=== PATIENT | male | born 1960 | race Caucasian/White ===

== ENCOUNTER 2024-11-29 23:00 | Inpatient (IN) | payer OTHER, SELFPAY ==
[2024-11-29 18:33] VITALS: BP 113/61
--- NOTE | 2024-11-29 19:31 | ED.GENMED ---
History of Present Illness
<Marilyn Randolph DO, Resident - Last Filed: 11/29/24 23:52>
General
Chief Complaint: Skin Problem
Source: patient
Time Seen by Provider: 11/29/24 19:11
History of Present Illness
History of Present Illness:
Patient is a 64-year-old male past medical history of bilateral carpal tunnel, hypertension, diabetes, prostate cancer presenting with left wrist and arm pain. Patient has chronic wrist and thumb pain due to carpal tunnel. He has been suggested to
have carpal tunnel surgery. Patient wears bilateral wrist braces at night, the left wrist brace is more elaborate than the right. Patient awoke at 3 AM this morning with wrist pain and tenderness to the wrist and thumb. He noticed some slight
warmth and redness. As the day went on, patient noticed red streaking up his forearm. Patient notes that the streaking is now beyond the length of his wrist brace. Present denies any injury to his left arm or wrist. Patient denies this ever
happening before. Patient is left-handed. Patient is compliant with his metformin and his last A1c was 6.9. Patient has recently started a vitamin D supplement.
Review of Systems
<Marilyn Randolph DO, Resident - Last Filed: 11/29/24 23:52>
Review of Systems
Allergies reviewed?: Yes
All Other Systems: ROS reviewed and negative except as documented in HPI and ROS
Constitutional: Reports no symptoms
EENT: Reports no symptoms
Respiratory: Reports no symptoms
Cardiac: Reports no symptoms
ABD/GI: Reports no symptoms
: Reports no symptoms
Musculoskeletal: Reports joint pain (left wrist) and joint swelling (left wrist and thenar eminence )
Skin: Reports other (redness over left wrist and thenar eminence, red streaking up left forearm)
Neurological: Reports no symptoms
Endocrine: Reports no symptoms
Hematologic/Lymphatic: Reports no symptoms
Psychiatric: Reports no symptoms
Phy Exam
<Marilyn Randolph DO, Resident - Last Filed: 11/29/24 23:52>
General Physical Exam
General Presentation: well appearing and no apparent distress
General age: appears stated age
General Skin: warm and dry
General Habitus: normal
General Mental: alert
Cardiovascular Exam
Cardiovascular Exam: regular rate/rhythm
Heart Sounds: normal
Pulmonary Exam
Pulmonary Exam: lungs clear, no respiratory distress, no crackles and no wheezing
Gastrointestinal Exam
Gastrointestinal Exam: normal bowel sounds, non tender, soft and non distended
Neurological Exam
Neurological Exam: alert and oriented x3
Musculoskeletal Exam
Musculoskeletal Exam: joint swelling (tenderness ove rleft wrist and thenar eminence,)
Skin Exam
Skin Exam: normal color, warm/dry and other (warmth, redness and tenderness over left wrist and thenar eminence, red streaking up left forearm)
Sepsis
<Marilyn Randolph DO, Resident - Last Filed: 11/29/24 23:52>
Sepsis Screening
Sepsis Assessment: Sepsis Ruled Out
Sepsis Screen
Sepsis Screen: Sepsis Ruled Out
Date: 11/29/24
Time: 23:51
Course
<Marilyn Randolph DO, Resident - Last Filed: 11/29/24 23:52>
Orders/Labs/Results
Orders:
Orders
11/29/24 19:51
CR Wrist - Left Min 3 Views Urgent
Comment:
Reason For Exam: left wrist and thumb pain
11/29/24 20:04
CRP [C-Reactive Protein] Urgent
Complete Blood Count/With Diff Urgent
Comprehensive Metabolic Panel Urgent
Sed Rate [Erythrocyte Sed Rate] Urgent
11/29/24 20:05
Ketorolac [Toradol] 15 mg IM NOW STA
11/29/24 20:07
Ketorolac [Toradol] 15 mg IV NOW STA
11/29/24 20:22
CeFAZolin 2 GRAM [Ancef] 2 grams in 10 ml IV NOW
11/29/24 21:30
Morphine Sulfate 4 mg IV NOW STA
Ondansetron Injectable [Zofran] 4 mg IV NOW STA
11/29/24 22:32
Urinalysis Reflex To Culture Routine
11/29/24 22:33
Admit/Transfer Patient As Directed
Co-Sign Provider:
Level of Care: Inpatient admission
Assign to:: Medical/Surgical
Physician / Group: daiana vences
Diagnosis: cellultiis L thumb wrist conc tenosynovitis vs septic joint
Reason for Hospitalization: cellultiis L thumb wrist conc tenosynovitis vs septic joint
Expected length of stay greater than two midnights?: Yes
ELOS- Estimated Length of Stay in days: 4
I certify the patient meets the requirements for IP care: Yes
Code Status As Directed
Resuscitation Status: Full Code
Oxycodone [Roxicodone] 5 mg PO Q4HPRN PRN
11/29/24 22:36
PRN Pain Medication Management As Directed
May give lesser potent ordered pain med per pt: Yes
preference::
Protocol:: Medication orders for pain may be administered in a
manner that supports deferring to patient preference
when the pt is:
- Requesting an ordered lesser potent pain medication.
Least to most potent pain medications are defined
as: acetaminophen < NSAID < tramadol < opioids
(morphine, oxycodone, hydromorphone).
- Requesting a lesser dose of the same medication IF
ORDERED.
- Requesting a less intrusive route of administration
if both routes are prescribed by the provider (PO <
IV).
11/29/24 22:39
ORTHOPEDIC CONSULT Routine
Consulting Provider: Austin Melissa
Was physician already notified: Yes
Reason for consult: thumb wrist cellulitis vs tensoynovitis/septic joint
11/30/24 08:00
Acetaminophen [Tylenol] 1,000 mg PO TID
Abnormal Lab Results
11/29/24
20:04
WBC 11.7 H 10^3/uL
(4.8-10.8)
RBC 3.88 L 10^6/uL
(4.70-6.10)
Hgb 11.5 L g/dL
(13.0-18.0)
Hct 34.8 L %
(39.0-52.0)
Abs Immat Gran (auto) 0.1 H 10^3/uL
(0-0.05)
Absolute Neuts (auto) 8.0 H 10^3/uL
(1.4-6.5)
Absolute Monos (auto) 1.3 H 10^3/uL
(0.1-0.6)
Lymphocytes % 18.4 L %
(20.5-51.1)
Monocytes % 10.7 H %
(1.7-9.3)
BUN 34 H mg/dl
(9-20)
Creatinine 1.8 H mg/dL
(0.7-1.3)
Glucose 129 H mg/dl
(70-99)
Alkaline Phosphatase 33 L U/L
(38-126)
C-Reactive Protein 24.50 H mg/L
(0.0-10.00)
11/29/24 20:04
11/29/24 20:04
Vital Signs
Initial and Last Documented VS:
Initial Vital Signs
Temp Pulse Resp BP Pulse Ox
99.2 F 91 16 113/61 96
11/29/24 18:33 11/29/24 18:33 11/29/24 18:33 11/29/24 18:33 11/29/24 18:33
Last Documented Vital Signs
Temp Pulse Resp BP Pulse Ox
98.3 F 65 16 105/63 96
11/29/24 23:12 11/29/24 23:12 11/29/24 23:12 11/29/24 23:12 11/29/24 23:12
<Den Santos, DO - Last Filed: 11/29/24 20:03>
Orders/Labs/Results
Orders:
Orders
11/29/24 19:51
CR Wrist - Left Min 3 Views Urgent
Comment:
Reason For Exam: left wrist and thumb pain
11/29/24 20:04
CRP [C-Reactive Protein] Urgent
Complete Blood Count/With Diff Urgent
Comprehensive Metabolic Panel Urgent
Sed Rate [Erythrocyte Sed Rate] Urgent
11/29/24 20:05
Ketorolac [Toradol] 15 mg IM NOW STA
11/29/24 20:07
Ketorolac [Toradol] 15 mg IV NOW STA
11/29/24 20:22
CeFAZolin 2 GRAM [Ancef] 2 grams in 10 ml IV NOW
11/29/24 21:30
Morphine Sulfate 4 mg IV NOW STA
Ondansetron Injectable [Zofran] 4 mg IV NOW STA
11/29/24 22:32
Urinalysis Reflex To Culture Routine
11/29/24 22:33
Admit/Transfer Patient As Directed
Co-Sign Provider:
Level of Care: Inpatient admission
Assign to:: Medical/Surgical
Physician / Group: daiana vences
Diagnosis: cellultiis L thumb wrist conc tenosynovitis vs septic joint
Reason for Hospitalization: cellultiis L thumb wrist conc tenosynovitis vs septic joint
Expected length of stay greater than two midnights?: Yes
ELOS- Estimated Length of Stay in days: 4
I certify the patient meets the requirements for IP care: Yes
Code Status As Directed
Resuscitation Status: Full Code
Oxycodone [Roxicodone] 5 mg PO Q4HPRN PRN
11/29/24 22:36
PRN Pain Medication Management As Directed
May give lesser potent ordered pain med per pt: Yes
preference::
Protocol:: Medication orders for pain may be administered in a
manner that supports deferring to patient preference
when the pt is:
- Requesting an ordered lesser potent pain medication.
Least to most potent pain medications are defined
as: acetaminophen < NSAID < tramadol < opioids
(morphine, oxycodone, hydromorphone).
- Requesting a lesser dose of the same medication IF
ORDERED.
- Requesting a less intrusive route of administration
if both routes are prescribed by the provider (PO <
IV).
11/29/24 22:39
ORTHOPEDIC CONSULT Routine
Consulting Provider: Austin Melissa
Was physician already notified: Yes
Reason for consult: thumb wrist cellulitis vs tensoynovitis/septic joint
11/30/24 08:00
Acetaminophen [Tylenol] 1,000 mg PO TID
Abnormal Lab Results
11/29/24
20:04
WBC 11.7 H 10^3/uL
(4.8-10.8)
RBC 3.88 L 10^6/uL
(4.70-6.10)
Hgb 11.5 L g/dL
(13.0-18.0)
Hct 34.8 L %
(39.0-52.0)
Abs Immat Gran (auto) 0.1 H 10^3/uL
(0-0.05)
Absolute Neuts (auto) 8.0 H 10^3/uL
(1.4-6.5)
Absolute Monos (auto) 1.3 H 10^3/uL
(0.1-0.6)
Lymphocytes % 18.4 L %
(20.5-51.1)
Monocytes % 10.7 H %
(1.7-9.3)
BUN 34 H mg/dl
(9-20)
Creatinine 1.8 H mg/dL
(0.7-1.3)
Glucose 129 H mg/dl
(70-99)
Alkaline Phosphatase 33 L U/L
(38-126)
C-Reactive Protein 24.50 H mg/L
(0.0-10.00)
11/29/24 20:04
11/29/24 20:04
Vital Signs
Initial and Last Documented VS:
Initial Vital Signs
Temp Pulse Resp BP Pulse Ox
99.2 F 91 16 113/61 96
11/29/24 18:33 11/29/24 18:33 11/29/24 18:33 11/29/24 18:33 11/29/24 18:33
Last Documented Vital Signs
Temp Pulse Resp BP Pulse Ox
98.3 F 65 16 105/63 96
11/29/24 23:12 11/29/24 23:12 11/29/24 23:12 11/29/24 23:12 11/29/24 23:12
<Marilyn Randolph DO, Resident - Last Filed: 11/29/24 23:52>
MDM/Problems Addressed
Differential Diagnosis Includes:
Cellulitis
MDM/Problems Addressed:
Will order CBC, CMP, sed rate, CRP, and x-ray of left wrist.
WBC is 11.7. CRP is 24.5 mg/L. Wrist x-ray shows degenerative changes. Gave 15 mg Toradol with no relief of symptoms. Just gave 4 mg morphine. Gave 2 grams cefazolin IV.
Will admit to hospitalist for management of the cellulitis. Reached out to Ortho with photos asking for consult tomorrow morning.
<Marilyn Randolph DO, Resident - Last Filed: 11/29/24 23:52>
*Pulse Oximetry
SaO2: 96
Oxygen Mode of Delivery: Room air
Patient hypoxic: no
*Critical Care Note
Total Time (30-74mins, 75-104mins- exclusive of procedures): Not Applicable
ED Attending Note
<Marilyn Randolph DO, Resident - Last Filed: 11/29/24 23:52>
-
Portions of this chart may have been created with voice recognition software.� Occasional wrong word or��sound alike� substitutions may have occurred due to the inherent limitations of voice recognition software.
<Den Santos DO - Last Filed: 11/29/24 20:03>
ED Attending Note
Patient seen and examined by attending physician: Yes
I performed a history and physical exam of patient and discussed management with resident, I reviewed resident's note and agree with documented findings and plan of care.: Yes
ED Attending Note:
I have reviewed and agree with his and treatment plan by Marilyn Randolph D.O. My exam revealed 63-year-old male with erythema of left wrist and forearm swelling of thenar palm. Will obtain labs, xray and d/w ortho.
Discharge Plan
Departure
Patient Disposition: Admit
Date of Disposition: 11/29/24
Time of Disposition: 22:28
Presentation/result/management discussed w/ accepting MD/DO: Hospitalist
Discharge Problem:
Cellulitis
Interventions
Interventions:
*Risk Screen - Suicide Last Done: 11/29/24 18:33
*Neglect/Abuse Screening Last Done: 11/29/24 18:33
ED-Skin Assessment Last Done: 11/29/24 20:12
[2024-11-29] MEDS: TORADOL 15 MG IV (20:09)
[2024-11-29 20:13] LABS: Hematocrit 34.8 % (39.0-52.0); Hemoglobin 11.5 g/dL (13.0-18.0); Mean Corp Hgb Conc. 33.0 g/dL (33.0-37.0); Mean Corpuscular Volume 89.7 fL (80.0-94.0); Nucleated Red Blood Cells % 0 % (-); Platelet Count 252 10^3/uL (130-400); Red Cell Dist. Width 13.1 % (11.5-14.5)
[2024-11-29 20:35] LABS: ALT (SGPT) 28 U/L (0-50); AST (SGOT) 17 U/L (17-59); Albumin 4.4 g/dl (3.5-5.0); Alkaline Phosphatase 33 U/L (38-126); Blood Urea Nitrogen 34 mg/dl (9-20); Calcium 9.8 mg/dl (8.4-10.2); Carbon Dioxide 26 mmol/L (22-30); Chloride 106 mmol/L (98-107); Glucose 129 mg/dl (70-99); Potassium 4.9 mmol/L (3.5-5.1); Sodium 139 mmol/L (135-145); Total Protein 6.8 g/dl (6.3-8.2); eGFR 41.77
[2024-11-29 20:38] LABS: C-Reactive Protein 24.50 mg/L (0.0-10.00)
[2024-11-29] MEDS: ANCEF 10 IV (20:49)
[2024-11-29 20:59] VITALS: BP 113/75
--- NOTE | 2024-11-29 22:11 | W.PN.UPDATE ---
Update Note
Progress Note Update
Patient seen in conjunction with DEVONTE. I agree with the findings history and physical. I concur with assessment plan unless stated otherwise.
Briefly, this is a 64-year-old with past medical history significant for [id number] diabetes, hypertension, hyperlipidemia, history of prostate cancer status post resection, history of nephrolithiasis with multiple oral neurological
procedures/'kidney surgeries', CKD, presented to the emergency department with acute onset of left hand redness and swelling. Denies any history of trauma. Denies any specific repetitive motion activity. Denies any insect bites. There is no open
wound. He has not had any fevers or chills. He did notice that he has decreased range of motion with opposition of the thumb. There is pain along the external surface of the thenar eminence. It radiates to the wrist. The wrist itself has normal
range of motion.
On the Emergency Department the patient was afebrile, Tmax 99.2, blood pressure 113/75 with a pulse rate of 78 satting 98% on room air. He had a white count of 11.7 otherwise unremarkable CBC. Electrolytes were normal. BUN/creatinine were 30 and
1.8, no recent priors.
X-ray shows degenerative changes and no foreign body or fluid collection.
ESR is 10, CRP 24.
Assessment and plan
Suspect acute tendinitis/cellulitis with increasing lymphangitic spread in the left upper extremity. There is no joint effusion. Pain with opposition of the thumb and extension of that tendon suggestive of tendinitis/flexor tenosynovitis. No
animal bite, no known trauma or external injury. Left handed but no recent repititive motion. No recent abx use.
- admit to med/surg
- likely needs splinting of thumb
- xray w/o obvious fracture, ortho consult
- ancef for cellulitis
- pain control, acetaminophen/opioids unfortunately w/o nsaids
CHRISTIANO - Mild CHRISTIANO, Cr 1.22 in may now 1.8. On lisinopril
- hold lisinopril
- Hydration overnight
- follow i/os
- check u/a
- u/s in am if creatinine remains elevated.
DM II
- metformin hold
- sliding scale insulin
DVT PPX - heparin sq
Code status - Full Code
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
[2024-11-29 23:12] VITALS: BP 105/63
[2024-11-29 23:13] VITALS: BMI 28.3
[2024-11-29] MEDS: MORPHINE SULFATE 4 MG IV (23:19)
[2024-11-29] MEDS: ZOFRAN 4 MG IV (23:21)
[2024-11-29] MEDS: FLUSH (NSS) 1 FLUSH IV (23:23)
[2024-11-30 01:54] VITALS: BMI 27.4
[2024-11-30 01:55] VITALS: BP 116/71
--- NOTE | 2024-11-30 02:15 | PTCARENOTE ---
Recieved pt from ED. Pt ambulated from stretcher to bed. Pt AAOx3, [id number] pt to unit, call grubbs within reach. Uable to do skin assessment on L arm due to splint/brace. Pt. care ongoing.
--- NOTE | 2024-11-30 02:15 | PTCARENOTE ---
Recieved pt from ED. Pt ambulated from stretcher to bed. Pt AAOx3, oriented pt to unit, call grubbs within reach. limited skin assessment on L arm due to splint/brace. Pt. care ongoing.
[2024-11-30 02:19] LABS: Glucose - Point of Care 119 mg/dl (70-99)
[2024-11-30] MEDS: NSS 1000 IV ×2 (02:30→21:05)
[2024-11-30] MEDS: ROXICODONE 5 MG PO ×2 (02:34→07:07)
[2024-11-30] MEDS: ANCEF 5 IV ×3 (04:10→21:05)
[2024-11-30 07:10] VITALS: BP 108/69
[2024-11-30 07:31] LABS: Hematocrit 32.9 % (39.0-52.0); Hemoglobin 10.7 g/dL (13.0-18.0); Mean Corp Hgb Conc. 32.5 g/dL (33.0-37.0); Mean Corpuscular Volume 92.2 fL (80.0-94.0); Nucleated Red Blood Cells % 0 % (-); Platelet Count 209 10^3/uL (130-400); Red Cell Dist. Width 13.1 % (11.5-14.5)
[2024-11-30 07:58] LABS: ALT (SGPT) 21 U/L (0-50); AST (SGOT) 16 U/L (17-59); Albumin 3.8 g/dl (3.5-5.0); Alkaline Phosphatase 32 U/L (38-126); Blood Urea Nitrogen 36 mg/dl (9-20); Calcium 8.9 mg/dl (8.4-10.2); Carbon Dioxide 26 mmol/L (22-30); Chloride 106 mmol/L (98-107); Estimated Creatinine Clearance 47 ml/min; Glucose 117 mg/dl (70-99); Potassium 4.4 mmol/L (3.5-5.1); Sodium 138 mmol/L (135-145); Total Protein 5.8 g/dl (6.3-8.2); eGFR 48.11
--- NOTE | 2024-11-30 08:37 | W.PN.UPDATE ---
Addendum entered and electronically signed by Austin Melissa MD 11/30/24 19:35:
Patient has improved throughout the day on intravenous antibiotics. This evening there is minimal erythema. He is able to move his left thumb and fingers with mild to moderate discomfort. We will continue observation with IV antibiotics. If
symptoms not significantly improved or worsen tomorrow, strong consideration will be given to MRI.
Original Note:
Update Note
Progress Note Update
Full orthopedic consult to be dictated:
Patient has developed left upper extremity cellulitis requiring admission to the hospital. 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 He was placed into a thumb spica splint with ice and elevation. Overnight
he received Ancef and evaluation this morning showed definite improvement. He still has edema in the left thumb and hand but the erythema that was tracking up his arm has resolved. He may transition from thumb spica splint this morning and
initiate warm soaks with K-pad. He should continue with the antibiotics and observation. Will reevaluate in the morning and if he is improved likely send him home on p.o. antibiotics with follow-up with his hand surgeon (Dr. Krause at [facility] in [place] who is following him for thumb arthritis and bilateral carpal tunnel symptoms). If things worsen consider MRI left hand/wrist.
[2024-11-30 08:46] LABS: Urine Character Clear (Clear)
[2024-11-30] MEDS: LOPRESSOR 25 MG PO ×2 (10:09→21:06)
[2024-11-30] MEDS: TYLENOL 1000 MG PO ×3 (10:10→23:03)
[2024-11-30] MEDS: VITAMIN D3 (cholecalciferol) 25 MCG PO (10:10)
[2024-11-30] MEDS: VITAMIN B-12 1000 MCG PO (10:10)
[2024-11-30] MEDS: TRICOR 145 MG PO (10:10)
[2024-11-30] MEDS: PROTONIX 40 MG PO (10:10)
[2024-11-30] MEDS: ROXICODONE 10 MG PO ×3 (11:18→23:09)
--- NOTE | 2024-11-30 11:28 | W.PN.HOSP.TC ---
Today's Communication/Plan
-
Continue antibiotics
Increase oxycodone
Renal/bladder ultrasound
Orthopedics
Assessment / Plan
Assessment / Plan
Gen-AAOx3, NAD
HEENT-NC, AT, anicteric, clear oral mm
Neck-supple
CV-reg, no M, +S1/S2
Lungs-clear B/L
Abd-soft, NT, ND
Ext-no edema
Musculoskeletal-no cyanosis, clubbing, left thenar eminence swelling and tenderness, tenderness in anatomical snuffbox of left hand, mild lymphangitis of left arm up to upper forearm, limited range of motion of left thumb due to pain
Skin-warm and dry
Neuro-grossly non-focal
Psych-calm, cooperative
Left thumb tenosynovitis/cellulitis -with associated lymphangitis. Patient denies any unusual physical activities involving his hands. He does garden a lot.
Appreciate orthopedics input. Continue Ancef and elevation. Left wrist x-ray shows degenerative changes without fracture.
Patient states oxycodone 5 mg is not helping, dose increased to 10 mg. Will speak with orthopedics regarding potential advanced imaging including MRI.
CHRISTIANO -creatinine 1.8 on admission, 1.6 today. Avoid NSAIDs, hold lisinopril. Check renal/bladder ultrasound. Baseline creatinine 1.2 in May of this year as per patient.
History of nephrolithiasis -follow-up with his urologist.
Normocytic anemia -suspect chronic. Outpatient follow-up.
DM2 without hyperglycemia -hold metformin given CHRISTIANO. Use low resistance NovoLog scale. Check hemoglobin A1c.
Essential hypertension -stable.
Hyperlipidemia -continue home meds.
History of prostate cancer
Full code
Anticipated Discharge: > 48 hours
Subjective/Interval History
-
Date of Service: November 30, 2024
Patient seen and examined, complaining of severe left hand pain.
Objective Data
-
Labs:
Laboratory Results
11/30/24
06:25
WBC 8.9
Hgb 10.7 L
Hct 32.9 L
Plt Count 209
Sodium 138
Potassium 4.4
Chloride 106
Carbon Dioxide 26
BUN 36 H
Creatinine 1.6 H
Glucose 117 H
Calcium 8.9
Total Bilirubin 0.3
AST 16 L
ALT 21
Alkaline Phosphatase 32 L
Vital Signs:
Vital Signs
Temp Pulse Resp BP Pulse Ox
97.8 F 64 18 108/69 94
11/30/24 07:10 11/30/24 07:10 11/30/24 07:10 11/30/24 07:10 11/30/24 07:10
I&O
11/29/24 11/30/24 12/01/24
06:59 06:59 06:59
Intake Total 400 / 400 240 / 240
Output Total 300 / 300
Balance 400 / 400 -60 / -60
Review of Systems
-
History Source: Patient
All other systems: Reviewed and negative
[2024-11-30] MEDS: XANAX 1 MG PO ×3 (11:41→23:09)
[2024-11-30 11:42] LABS: Glucose - Point of Care 181 mg/dl (70-99)
[2024-11-30] MEDS: NOVOLOG FLEXPEN-LOW RESISTANCE 1 UNITS SC (13:00)
[2024-11-30 14:18] LABS: Uric Acid 5.8 mg/dl (3.5-8.5)
--- NOTE | 2024-11-30 15:56 | CM ---
Chart reviewed and patient lives in a 3rd floor apartment, patient is independent with adl's and ambulation, no dme, home when stable , no needs.
PCP: Dex Pathak
Pharmacy: [facility]
[2024-11-30 16:19] VITALS: BP 124/64
[2024-11-30] MEDS: LIPITOR 10 MG PO (17:06)
[2024-11-30 17:08] LABS: Glucose - Point of Care 133 mg/dl (70-99)
[2024-11-30] MEDS: NOVOLOG FLEXPEN-LOW RESISTANCE SC (17:12)
[2024-11-30] MEDS: NSS IV (21:05)
[2024-11-30 21:06] LABS: Glucose - Point of Care 157 mg/dl (70-99)
[2024-11-30] MEDS: HEPARIN 5000 UNITS SC (21:06)
[2024-11-30 22:56] VITALS: BP 122/77
[2024-12-01] MEDS: ANCEF 5 IV (04:11)
[2024-12-01 07:46] LABS: Glucose - Point of Care 138 mg/dl (70-99)
[2024-12-01 08:00] VITALS: BP 135/77
[2024-12-01 08:04] LABS: Blood Urea Nitrogen 22 mg/dl (9-20); Calcium 9.3 mg/dl (8.4-10.2); Carbon Dioxide 28 mmol/L (22-30); Chloride 105 mmol/L (98-107); Estimated Creatinine Clearance 63 ml/min; Glucose 125 mg/dl (70-99); Potassium 4.7 mmol/L (3.5-5.1); Sodium 139 mmol/L (135-145); eGFR > 60.00
--- NOTE | 2024-12-01 08:26 | W.PN.UPDATE ---
Update Note
Progress Note Update
Patient had a difficult overnight with regards to pain and swelling. Subjectiely, definitely worse than yesterday. Remains Afeb. Labs pending. Was seen last evening by Dr. Melissa (~[phone]). still with minimal erythema about the left wrist and hand.
No obvious streaking. near composite fist with pain. DNVI SAMINAE. Subjectively more swelling reported this morning. More pain radiating up the arm. Continue current treatment. Discussed MRI with the patient, which I believe is reasonable. Order
placed. Hopefully nothing obvious on MRI warranting surgical discussion. Will follow-up on results after the scan is complete
[2024-12-01 08:54] LABS: Glycohemoglobin (HgbA1c) 6.8 % (4.0-5.6)
[2024-12-01] MEDS: NOVOLOG FLEXPEN-LOW RESISTANCE SC ×2 (08:55→14:02)
[2024-12-01] MEDS: PROTONIX 40 MG PO (08:56)
[2024-12-01] MEDS: TRICOR 145 MG PO (08:56)
[2024-12-01] MEDS: TYLENOL 1000 MG PO ×3 (08:57→21:01)
[2024-12-01] MEDS: LOPRESSOR 25 MG PO ×2 (08:57→20:19)
[2024-12-01] MEDS: XANAX 1 MG PO ×2 (08:58→21:01)
[2024-12-01] MEDS: ROXICODONE 10 MG PO (08:58)
[2024-12-01] MEDS: VITAMIN B-12 1000 MCG PO (08:58)
[2024-12-01] MEDS: VITAMIN D3 (cholecalciferol) 25 MCG PO (08:59)
[2024-12-01] MEDS: HEPARIN 5000 UNITS SC ×2 (09:00→20:13)
[2024-12-01 09:06] LABS: Hematocrit 36.3 % (39.0-52.0); Hemoglobin 11.9 g/dL (13.0-18.0); Mean Corp Hgb Conc. 32.8 g/dL (33.0-37.0); Mean Corpuscular Volume 90.5 fL (80.0-94.0); Nucleated Red Blood Cells % 0 % (-); Platelet Count 234 10^3/uL (130-400); Red Cell Dist. Width 12.8 % (11.5-14.5)
--- NOTE | 2024-12-01 09:06 | PN.CDI ---
CDI
- -
CDI:
Physician Documentation Request
Admit Date: 11/29/24 23:00
Dear Doctor Laura,
Please review the following and provide your response in the progress notes.
Clinical Indicators:
PN, 11/30
#Left thumb tenosynovitis/cellulitis -with associated lymphangitis.
#DM2 without hyperglycemia-...
Laboratory Tests
12/01/24
07:21
Hemoglobin A1c 6.8 H
Please clarify the relationship, if any, between these conditions:
Yes, Left thumb tenosynovitis/cellulitis is enhanced by/contributed to/associated with/due to Diabetes.
No, Left thumb tenosynovitis/cellulitis is not enhanced by/contributed to/associated with/due to Diabetes but it is due to ___. (Please specify)
Other (please specify)
Unable to determine
Use of terms such as suspected, likely, concern for, or probable (associated with a specific diagnosis that is being evaluated, monitored, or treated as if it exists) are acceptable and can be coded in the inpatient setting, when documented at the
time of discharge.
Thank you,
Clarita Tapia RN BSN CCDS
CDI Specialist
Please contact via tiger text
Please use your independent medical judgment in providing your response.
[2024-12-01] MEDS: NSS 1000 IV (09:38)
[2024-12-01] MEDS: DILAUDID 0.5 MG IV ×3 (11:47→20:22)
--- NOTE | 2024-12-01 12:05 | W.PN.HOSP.TC ---
Addendum entered and electronically signed by Freddie Sanchez DO 12/01/24 12:12:
Yes, Left thumb tenosynovitis/cellulitis is possibly associated with Diabetes.
Original Note:
Today's Communication/Plan
-
Increase Ancef dose
MRI
Change oxycodone to IV Dilaudid
Assessment / Plan
Assessment / Plan
Gen-AAOx3, NAD
HEENT-NC, AT, anicteric, clear oral mm
Neck-supple
CV-reg, no M, +S1/S2
Lungs-clear B/L
Abd-soft, NT, ND
Ext-no edema
Musculoskeletal-no cyanosis, clubbing, left thenar eminence swelling and tenderness, tenderness in anatomical snuffbox of left hand, mild lymphangitis of left arm up to upper forearm, limited range of motion of left thumb due to pain
Skin-warm and dry
Neuro-grossly non-focal
Psych-calm, cooperative
Left thumb tenosynovitis/cellulitis -with associated lymphangitis. Patient denies any unusual physical activities involving his hands. He does garden a lot.
Appreciate orthopedics input. Continue Ancef and elevation. Left wrist x-ray shows degenerative changes without fracture.
Leukocytosis resolved. Afebrile. Looks nontoxic.
Will change oxycodone to IV Dilaudid given increased pain. Increase Ancef to 2 g IV every 8.
Agree with MRI, ordered by orthopedics.
CHRISTIANO -creatinine 1.8 on admission, 1.2 today. Avoid NSAIDs, hold lisinopril. Baseline creatinine 1.2 in May of this year as per patient.
Renal/bladder ultrasound completed and does not show hydronephrosis, no significant postvoid residual. Bilateral renal echogenicity likely representing nephroliths.
History of nephrolithiasis -follow-up with his urologist.
Normocytic anemia -suspect chronic. Outpatient follow-up.
DM2 without hyperglycemia -hold metformin given CHRISTIANO. Use low resistance NovoLog scale. Hemoglobin A1c 6.8%. Glucose 125 this morning.
Essential hypertension -stable.
Hyperlipidemia -continue home meds.
History of prostate cancer
Full code
Anticipated Discharge: > 48 hours
Subjective/Interval History
-
Date of Service: December 01, 2024
Patient seen and examined. Had increased pain in the left thumb overnight. Limited range of motion due to pain.
Objective Data
-
Labs:
Laboratory Results
12/01/24 12/01/24
07:21 08:29
WBC 8.1 Cancelled
Hgb 11.9 L Cancelled
Hct 36.3 L Cancelled
Plt Count 234 Cancelled
Sodium 139
Potassium 4.7
Chloride 105
Carbon Dioxide 28
BUN 22 H
Creatinine 1.2
Glucose 125 H
Calcium 9.3
Vital Signs:
Vital Signs
Temp Pulse Resp BP Pulse Ox
98.2 F 79 18 135/77 96
12/01/24 08:00 12/01/24 08:00 12/01/24 08:00 12/01/24 08:00 12/01/24 08:00
I&O
11/30/24 12/01/24 12/02/24
06:59 06:59 06:59
Intake Total 400 / 400 2660 / 2660
Output Total 1425 / 1425
Balance 400 / 400 1235 / 1235
Review of Systems
-
History Source: Patient
All other systems: Reviewed and negative
--- NOTE | 2024-12-01 13:07 | CM ---
Home when stable.
Plan; Home when stable, no needs.
[2024-12-01 13:10] LABS: Glucose - Point of Care 113 mg/dl (70-99)
--- NOTE | 2024-12-01 13:15 | CM ---
Chart reviewed and patient is for discharge to home when stable.
Plan; Home when stable,.
[2024-12-01] MEDS: ANCEF IV (14:38)
[2024-12-01] MEDS: ANCEF 10 IV ×2 (14:41→20:15)
[2024-12-01 16:00] VITALS: BP 133/78
[2024-12-01 17:12] LABS: Glucose - Point of Care 168 mg/dl (70-99)
[2024-12-01] MEDS: LIPITOR 10 MG PO (17:56)
[2024-12-01] MEDS: NOVOLOG FLEXPEN-LOW RESISTANCE 1 UNITS SC (17:56)
[2024-12-01 21:40] LABS: Glucose - Point of Care 116 mg/dl (70-99)
[2024-12-01 23:39] VITALS: BP 106/60
[2024-12-02] MEDS: ANCEF 10 IV ×3 (05:44→21:53)
[2024-12-02] MEDS: DILAUDID 0.5 MG IV ×4 (06:26→23:19)
[2024-12-02 07:20] VITALS: BP 150/78
[2024-12-02] MEDS: NOVOLOG FLEXPEN-LOW RESISTANCE 1 UNITS SC ×2 (08:03→12:36)
[2024-12-02 08:04] LABS: Glucose - Point of Care 151 mg/dl (70-99)
[2024-12-02] MEDS: TYLENOL 1000 MG PO ×3 (08:04→21:53)
[2024-12-02] MEDS: TRICOR 145 MG PO (08:04)
[2024-12-02] MEDS: PROTONIX 40 MG PO (08:04)
[2024-12-02] MEDS: VITAMIN D3 (cholecalciferol) 25 MCG PO (08:05)
[2024-12-02] MEDS: XANAX 1 MG PO ×2 (08:05→21:52)
[2024-12-02] MEDS: LOPRESSOR 25 MG PO ×2 (08:06→20:17)
[2024-12-02] MEDS: VITAMIN B-12 1000 MCG PO (08:06)
[2024-12-02] MEDS: HEPARIN 5000 UNITS SC ×2 (08:07→19:58)
--- NOTE | 2024-12-02 08:47 | W.PN.HOSP.TC ---
Today's Communication/Plan
-
ID consult
Assessment / Plan
Assessment / Plan
Gen-AAOx3, NAD
HEENT-NC, AT, anicteric, clear oral mm
Neck-supple
CV-reg, no M, +S1/S2
Lungs-clear B/L
Abd-soft, NT, ND
Ext-no edema
Musculoskeletal-no cyanosis, clubbing, left thenar eminence swelling and tenderness, tenderness in anatomical snuffbox of left hand, mild lymphangitis of left arm up to upper forearm, limited range of motion of left thumb due to pain
Skin-warm and dry
Neuro-grossly non-focal
Psych-calm, cooperative
Left thumb tenosynovitis/cellulitis -with associated lymphangitis. Patient denies any unusual physical activities involving his hands. He does garden a lot.
Cefazolin dose increased to 2 g IV every 8 hours.
Leukocytosis resolved. Afebrile. Looks nontoxic.
Continue IV Dilaudid as needed pain.
MRI left wrist reviewed. Severe cellulitis, severe arthritis of left first CMC joint, left wrist septic arthritis, possible osteomyelitis of capitate bone. Orthopedics to decide on joint washout.
ID consult.
CHRISTIANO -creatinine improved from 1.8 to 1.2. Avoid NSAIDs, hold lisinopril. Baseline creatinine 1.2 in May of this year as per patient.
Renal/bladder ultrasound completed and does not show hydronephrosis, no significant postvoid residual. Bilateral renal echogenicity likely representing nephroliths.
History of nephrolithiasis -follow-up with his urologist.
Normocytic anemia -suspect chronic. Outpatient follow-up.
DM2 without hyperglycemia -hold metformin given CHRISTIANO. Use low resistance NovoLog scale. Hemoglobin A1c 6.8%. Glucose 151 this morning.
Essential hypertension -stable.
Hyperlipidemia -continue home meds.
History of prostate cancer
Full code
Anticipated Discharge: > 48 hours
Subjective/Interval History
-
Date of Service: December 02, 2024
Patient seen and examined. Still with severe left wrist and hand pain. Range of motion improved.
Objective Data
-
Labs:
Laboratory Results
12/02/24
07:46
Sodium Pending
Potassium Pending
Chloride Pending
Carbon Dioxide Pending
BUN Pending
Creatinine Pending
Glucose Pending
Calcium Pending
Vital Signs:
Vital Signs
Temp Pulse Resp BP Pulse Ox
97.7 F 74 16 150/78 97
12/02/24 07:20 12/02/24 07:20 12/02/24 07:20 12/02/24 07:20 12/02/24 07:20
I&O
12/01/24 12/02/24 12/03/24
06:59 06:59 06:59
Intake Total 2660 / 2660 1020 / 1020
Output Total 1425 / 1425 900 / 900
Balance 1235 / 1235 120 / 120
Review of Systems
-
History Source: Patient
All other systems: Reviewed and negative
[2024-12-02 09:27] LABS: Blood Urea Nitrogen 20 mg/dl (9-20); Calcium 9.8 mg/dl (8.4-10.2); Carbon Dioxide 24 mmol/L (22-30); Chloride 104 mmol/L (98-107); Estimated Creatinine Clearance 76 ml/min; Glucose 133 mg/dl (70-99); Potassium 4.8 mmol/L (3.5-5.1); Sodium 140 mmol/L (135-145); eGFR > 60.00
--- NOTE | 2024-12-02 11:15 | W.PN.UPDATE ---
Update Note
Progress Note Update
Mr. Magdaleno is sitting comfortably in his chair this morning. He reports his pain, swelling and ROM have continued to improve overnight. He does endorse continued pain with any motion or use of the hand.
Directed exam of the left hand/wrist reveals generalized edema over the dorsal aspect of the hand with hue of erythema. He also has quite a bit of edema about the thenar eminence. Tenderness to palpation over the CMC joint, as well as in the
midcarpal area. He is able to make a composite fist and fully extend fingers. His is able to fully oppose his thumb, though this does cause discomfort. Maintained wrist ROM with only slight discomfort. Neurovascularly intact. He has been afebrile.
MRI Left Upper Extremity IMPRESSION:
1. SEVERE CELLULITIS throughout the dorsal and radial side of the left hand and wrist.
2. Severe acute myositis in the thenar muscles of the left hand.
3. SEVERE ARTHRITIS of the LEFT 1ST CMC JOINT with a large joint effusion, small osseous erosions, and severe subchondral bone marrow edema consistent with osteoarthritis and possibly superimposed septic arthritis.
4. Large dorsally protruding midcarpal joint effusion suggesting SEPTIC ARTHRITIS of the MIDCARPAL JOINT.
5. Small osseous erosions in the capitate (possibly osteomyelitis).
6. Small radiocarpal joint effusion.
7. Tear of the peripheral triangular fibrocartilage complex.
Left hand/wrist cellulitis
--Misha's MRI was reviewed with him today. This does reveal severe cellulitis, myositis of his thenar muscles, severe CMC joint OA and an effusion in his midcarpal joint. Dr. Frias was able to evaluate the patient, and review his imaging. He is
not overly concerned for septic arthritic, and believes he is likely dealing with an arthritic flare versus gout/pseudogout. He does not appreciate any indication for surgical intervention at this time. Recommend treatment with anti-inflammatory
medication. He has history of CKD, so will avoid NSAIDs. Recommend Medrol Dospak. Will continue to monitor his symptoms for improvement.
[2024-12-02 11:52] LABS: Glucose - Point of Care 170 mg/dl (70-99)
[2024-12-02] MEDS: MEDROL 24 MG PO (12:20)
--- NOTE | 2024-12-02 13:25 | CON.ID ---
Consultation
-
Date/Time Consultation Requested: December 02, 2024 0710
Date/Time Consultation Performed: December 02, 2024 1325
Requesting Provider: Dr. Freddie Sanchez
Performing Provider: Dr. Verna Bobo
Reason for Consultation: Septic arthritis of the hand
Chief Complaint / Past History
Chief Complaint
Left hand swelling, streaking redness and pain
History of Present Illness
64-year-old male with history of diabetes mellitus, hypertension, chronic left carpal tunnel, 1st CMC arthritis, tendinitis ED on November 29 due to left hand edema, redness streaking up his forearm. Patient symptoms started Wednesday morning when he
noted dorsum of the left hand swollen especially over the radial side. He then had had loss of use of his left hand, unable to hold a cup. There was redness on the dorsum ulnar side which then started to streak up to his forearm. No fevers or
chills. He denies recent injury or trauma. In the past, he would have flareup of his left hand but not to this degree. He is afebrile in the hospital. Admission leukocytosis quickly resolved. MRI of the left hand showed severe cellulitis on
the dorsal and radial side of the left hand and wrist, myositis of the thenar muscles, severe arthritis of the left first CMC joint with large effusion, large dorsally protruding midcarpal joint effusion.
Past History
Additional Past Medical History:
Diabetes mellitus
Hypertension
dyslipidemia
Nephrolithiasis open surgical removal 1984
Esophageal strictures status post dilation
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
Urethral deformity [id number]
Left carpal tunnel, 1st CMC arthritis, tendinitis
Back surgery
Allergy History:
No Known Allergies Allergy (Verified 11/29/24 18:40)
Medications Reviewed: Yes
Current Antibiotics:
cefazolin d3
Social History
Tobacco: Non-Smoker
Alcohol: None
Drug: None
Personal:
Living: With Family
Family History
Family History: Not Pertinent
Review of Systems
Review of Systems
General: Negative Fever, Chills or Change in Appetite
HEENT: Negative Sinus Problems or Headache
Cardiovascular: Negative Chest Pain or Dyspnea
Respiratory: Negative Dyspnea or Cough
Gasteroenterology: Negative Nausea, Vomiting or Diarrhea
Genital / Urological: Negative Dysuria or Flank Pain
All systems: All other systems were reviewed and were negative
Vital Signs
Temp Pulse Resp BP Pulse Ox
97.7 F 74 16 150/78 97
12/02/24 07:20 12/02/24 07:20 12/02/24 07:20 12/02/24 07:20 12/02/24 07:20
Physical Exam
Physical Exam
Constitutional: No Acute Distress and Comfortable
Eyes: No Conjunctival Hemorrhage and Sclera Anicteric
Cardiovascular: Regular Rate and S1/S2
Pulmonary: Clear
Gastrointestinal: Soft, Non Tender, Non Distended and Normal Bowel Sounds
Extremities: Other (left hand dorsum/wrist + edema, more so on radial side, + left thenar edema, radial side erytehma improving, lymphangitis resolved, ROM at wrist intact)
Neurological: AO x 3
Lab / Diagnostic Study Results
12/01/24 08:29
12/02/24 07:46
Abs Immat Gran (auto) Cancelled 12/01/24 08:29
Absolute Neuts (auto) Cancelled 12/01/24 08:29
Absolute Lymphs (auto) Cancelled 12/01/24 08:29
Absolute Monos (auto) Cancelled 12/01/24 08:29
Absolute Basos (auto) Cancelled 12/01/24 08:29
Immature Gran % Cancelled 12/01/24 08:29
Neutrophils % Cancelled 12/01/24 08:29
Lymphocytes % Cancelled 12/01/24 08:29
Monocytes % Cancelled 12/01/24 08:29
Eosinophils % Cancelled 12/01/24 08:29
Basophils % Cancelled 12/01/24 08:29
ESR 10 mm/hour (0-20) 11/29/24 20:04
C-Reactive Protein 24.50 mg/L (0.0-10.00) H 11/29/24 20:04
Microbiology Results
12/02/24 MRI LUE wo contrast: SEVERE CELLULITIS throughout the dorsal and radial side of the left hand and wrist.
2. Severe acute myositis in the thenar muscles of the left hand.
3. SEVERE ARTHRITIS of the LEFT 1ST CMC JOINT with a large joint effusion, small osseous erosions, and severe subchondral bone marrow edema consistent with osteoarthritis and possibly superimposed septic arthritis.
4. Large dorsally protruding midcarpal joint effusion suggesting SEPTIC ARTHRITIS of the MIDCARPAL JOINT.
5. Small osseous erosions in the capitate (possibly osteomyelitis).
6. Small radiocarpal joint effusion.
7. Tear of the peripheral triangular fibrocartilage complex.
Assessment / Plan
# Left hand cellulitis
- Appears to be improving
- Continue cefazolin
- Keep hand elevated.
# Suspect acute on chronic left hand 1st CMC joint, midcarpal joint arthritis, myositis flare/inflammatory condition
- Agree with steroid and monitor for response.
# Conditions [employer]PER[employer]
Diabetes mellitus
Hypertension
dyslipidemia
Nephrolithiasis open surgical removal 1984
Esophageal strictures status post dilation
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
Urethral deformity [id number]
Left carpal tunnel, 1st CMC arthritis, tendinitis
Back surgery
[2024-12-02 16:00] VITALS: BP 128/71
[2024-12-02] MEDS: LIPITOR 10 MG PO (17:31)
[2024-12-02] MEDS: NOVOLOG FLEXPEN-LOW RESISTANCE 300 UNITS SC (17:32)
[2024-12-02 17:36] LABS: Glucose - Point of Care 199 mg/dl (70-99)
[2024-12-02 21:59] LABS: Glucose - Point of Care 260 mg/dl (70-99)
[2024-12-03 00:32] VITALS: BP 137/65
[2024-12-03] MEDS: ANCEF 10 IV ×2 (04:41→12:51)
[2024-12-03] MEDS: DILAUDID 0.5 MG IV (06:22)
[2024-12-03 07:25] VITALS: BP 140/86
[2024-12-03 07:26] LABS: Glucose - Point of Care 119 mg/dl (70-99)
[2024-12-03] MEDS: NOVOLOG FLEXPEN-LOW RESISTANCE SC (08:18)
[2024-12-03] MEDS: VITAMIN B-12 1000 MCG PO (09:02)
[2024-12-03] MEDS: PROTONIX 40 MG PO (09:02)
[2024-12-03] MEDS: TYLENOL 1000 MG PO (09:02)
[2024-12-03] MEDS: TRICOR 145 MG PO (09:02)
[2024-12-03] MEDS: VITAMIN D3 (cholecalciferol) 25 MCG PO (09:02)
[2024-12-03] MEDS: MEDROL 16 MG PO (09:05)
[2024-12-03] MEDS: HEPARIN 5000 UNITS SC (09:06)
[2024-12-03] MEDS: MEDROL 20 MG PO (09:06)
[2024-12-03] MEDS: LOPRESSOR PO (09:15)
[2024-12-03] MEDS: XANAX 1 MG PO (10:22)
--- NOTE | 2024-12-03 11:38 | W.PN.ID1 ---
Date of Service
Date of Service: December 03, 2024
Today's Communication
- Transition cefazolin to cephalexin 500mg po qid through 12/09/24.
Assessment / Plan
# Left hand cellulitis
- Resolving
- Transition cefazolin to cephalexin 500mg po qid through 12/09/24.
- Keep hand elevated.
# Suspect acute on chronic left hand 1st CMC joint, midcarpal joint arthritis, myositis flare/inflammatory condition
- Responding well to steroid.
- Follow-up with Ortho.
# Conditions UPPER TIER
Diabetes mellitus
Hypertension
dyslipidemia
Nephrolithiasis open surgical removal 1984
Esophageal strictures status post dilation
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
Urethral deformity [id number]
Left carpal tunnel, 1st CMC arthritis, tendinitis
Back surgery
Chief Complaint
-: Cellulitis
Subjective / Review of Systems
Hand much improved today. Thumb still sore.
Vital Signs / Physical Exam
Vital Signs
Vital Signs
Temp Pulse Resp BP Pulse Ox
98.1 F 59 16 140/86 98
12/03/24 07:25 12/03/24 09:15 12/03/24 07:25 12/03/24 07:25 12/03/24 07:25
Physical Exam
Constitutional: No Acute Distress
Cardiovascular: Regular Rate and S1/S2
Pulmonary: Clear
Gastrointestinal: Soft, Non Tender, Non Distended and Normal Bowel Sounds
Musculoskeletal: Other (left hand /wrist edema improved more localized to thenar. Erythema resolved. ROM wrist and fingers much improved. )
Objective Data
Lab Data
Lab Results
12/01/24 08:29
12/02/24 07:46
ESR 10 mm/hour (0-20) 11/29/24 20:04
Estimated Creat Clear 76 ml/min 12/02/24 07:46
Total Bilirubin 0.3 mg/dl (0.2-1.3) 11/30/24 06:25
AST 16 U/L (17-59) L 11/30/24 06:25
ALT 21 U/L (0-50) 11/30/24 06:25
Alkaline Phosphatase 32 U/L (38-126) L 11/30/24 06:25
C-Reactive Protein 24.50 mg/L (0.0-10.00) H 11/29/24 20:04
Most recent labs reviewed.
12/02/24 MRI LUE wo contrast: SEVERE CELLULITIS throughout the dorsal and radial side of the left hand and wrist.
2. Severe acute myositis in the thenar muscles of the left hand.
3. SEVERE ARTHRITIS of the LEFT 1ST CMC JOINT with a large joint effusion, small osseous erosions, and severe subchondral bone marrow edema consistent with osteoarthritis and possibly superimposed septic arthritis.
4. Large dorsally protruding midcarpal joint effusion suggesting SEPTIC ARTHRITIS of the MIDCARPAL JOINT.
5. Small osseous erosions in the capitate (possibly osteomyelitis).
6. Small radiocarpal joint effusion.
7. Tear of the peripheral triangular fibrocartilage complex.
Care Review
Plan reviewed with: Physician (Dr. Sanchez)
[2024-12-03 11:51] LABS: Glucose - Point of Care 163 mg/dl (70-99)
--- NOTE | 2024-12-03 11:58 | W.PN.HOSP.TC ---
Today's Communication/Plan
-
Transition to oral analgesics
Assessment / Plan
Assessment / Plan
Gen-AAOx3, NAD
HEENT-NC, AT, anicteric, clear oral mm
Neck-supple
CV-reg, no M, +S1/S2
Lungs-clear B/L
Abd-soft, NT, ND
Ext-no edema
Musculoskeletal-no cyanosis, clubbing, left thenar eminence swelling and tenderness, tenderness in anatomical snuffbox of left hand, mild lymphangitis of left arm up to upper forearm, limited range of motion of left thumb due to pain
Skin-warm and dry
Neuro-grossly non-focal
Psych-calm, cooperative
Left thumb tenosynovitis/cellulitis -with associated lymphangitis. Patient denies any unusual physical activities involving his hands. He does garden a lot.
ID recommends transitioning to Keflex.
Leukocytosis resolved. Afebrile. Looks nontoxic.
Getting IV Dilaudid, will transition to oxycodone as needed. Discussed with patient.
MRI left wrist reviewed. Severe cellulitis, severe arthritis of left first CMC joint, left wrist septic arthritis, possible osteomyelitis of capitate bone. Orthopedics to decide on joint washout.
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 He has an appointment to follow-up with hand surgery December 14.
CHRISTIANO -creatinine improved from 1.8 to 1.0. Avoid NSAIDs, hold lisinopril. Baseline creatinine 1.2 in May of this year as per patient.
Renal/bladder ultrasound completed and does not show hydronephrosis, no significant postvoid residual. Bilateral renal echogenicity likely representing nephroliths.
History of nephrolithiasis -follow-up with his urologist.
Normocytic anemia -suspect chronic. Outpatient follow-up.
DM2 without hyperglycemia - Use low resistance NovoLog scale. Hemoglobin A1c 6.8%. Glucose 119 this morning. Resume metformin on discharge.
Essential hypertension -stable.
Hyperlipidemia -on simvastatin, fenofibrate.
History of prostate cancer
Full code
Dispo -can discharge if cleared by orthopedics. Outpatient follow-up.
Anticipated Discharge: Today
Subjective/Interval History
-
Date of Service: December 03, 2024
Patient seen and examined. Pain and range of motion are improving but not resolved.
Objective Data
-
Vital Signs:
Vital Signs
Temp Pulse Resp BP Pulse Ox
98.1 F 59 16 140/86 98
12/03/24 07:25 12/03/24 09:15 12/03/24 07:25 12/03/24 07:25 12/03/24 07:25
I&O
12/02/24 12/03/24 12/04/24
06:59 06:59 06:59
Intake Total 1020 / 1020 1140 / 1140
Output Total 900 / 900 400 / 400
Balance 120 / 120 1140 / 1140 -400 / -400
Review of Systems
-
History Source: Patient
All other systems: Reviewed and negative
[2024-12-03] MEDS: ROXICODONE 5 MG PO (12:16)
[2024-12-03] MEDS: NOVOLOG FLEXPEN-LOW RESISTANCE 1 UNITS SC (12:48)
--- NOTE | 2024-12-03 14:47 | CM ---
Chart reviewed and patient to return to home today, no needs.
Plan; Home no needs.
--- NOTE | 2024-12-03 15:06 | W.PN.UPDATE ---
Update Note
Progress Note Update
Mr. Magdaleno is sitting comfortably in his chair this morning. He reports his swelling and pain have improved significantly since starting the steroid. He does endorse continued pain, most notably about the CMC joint, but he reports this also has
improved slightly.
Directed exam of the left hand/wrist reveals mild residual edema over the dorsal aspect of the hand. Much improved from yesterday. Edema about the thenar eminence. Tenderness to palpation over the CMC joint, as well as mild tenderness in the
midcarpal area. He is able to make a composite fist and fully extend fingers. His is able to fully oppose his thumb, though this does cause discomfort. Maintained wrist ROM with only slight discomfort. Neurovascularly intact. He has been afebrile.
Left hand/wrist cellulitis
--Misha's symptoms have improved significantly since starting the steroid. Recommend continuing to monitor his symptoms. Continue with the steroid. Encouraged ice and elevation for edema control. We are happy to see him as an outpatient, but he may
also follow up with his established orthopedist if preferred.
--- NOTE | 2024-12-03 15:11 | W.DS.TRANS ---
DC Summary - [employer]
-
Discharge Instructions:
Discharge Diagnosis/Procedures Acute left wrist arthritis, cellulitis, left 1st
CMC arthritis
Diet Diabetic, Carb Controlled
Activity As tolerated
Driving Restrictions As prior to admission
Bathing Restrictions None
Instructions:
Stand-Alone Forms:
Changes to Home Medications: No
Discharge Medications:
DC Medications w/original date entered in [employer]
alprazolam 1 mg tablet (Xanax) 1 mg PO TIDPRN PRN anxiety 11/29/24
cholecalciferol (vitamin D3) 25 mcg (1,000 unit) tablet (Vitamin D3) 25 mcg PO DAILY 11/29/24
cyanocobalamin (vitamin B-12) 1,000 mcg tablet 1,000 mcg PO DAILY 11/29/24
fenofibrate 160 mg tablet 160 mg PO DAILY 11/29/24
lisinopril 20 mg tablet 20 mg PO DAILY 11/29/24
metformin 1,000 mg tablet 1,000 mg PO BID 11/29/24
metoprolol tartrate 25 mg tablet 25 mg PO BID 11/29/24
niacin 100 mg tablet 100 mg PO DAILY 11/29/24
pantoprazole 40 mg tablet,delayed release (Protonix) 40 mg PO DAILY 11/29/24
simvastatin 20 mg tablet (Zocor) 20 mg PO QPM 11/29/24
tadalafil 5 mg tablet 5 mg PO DAILY 11/29/24
cephalexin 500 mg capsule 500 mg PO QID #27 caps 12/03/24
methylprednisolone 4 mg tablets in a dose pack (Medrol (Aaron)) See Rx Instructions PO .COMPLEX #21 ea 12/03/24
oxycodone 5 mg tablet 5 mg PO Q4HPRN PRN severe pain #15 tabs 12/03/24
Home Medication Changes
Pending Results: No
[2024-12-03 15:37] VITALS: BP 154/79
== END 2024-12-03 15:50 | disposition home or self-care (01) | DRG 638 ==
LOC: 4 WEST ACU 23:00
PROVIDERS: Clinical Nurse Specialist Family Health; ADMITTING PHYSICIAN Internal Medicine; ATTENDING PHYSICIAN Hospitalist; CONSULT PHYSICIAN Internal Medicine Infectious Disease; CONSULT PHYSICIAN Specialist; EMERGENCY PHYSICIAN Emergency Medicine; FAMILY PHYSICIAN Family Medicine
DX: E11.628 Type 2 diabetes mellitus with other skin complications (principal); L03.114 Cellulitis of left upper limb; N17.9 Acute kidney failure, unspecified; M18.12 Unilateral primary osteoarthritis of first carpometacarpal joint, left hand; E78.5 Hyperlipidemia, unspecified; I10 Essential (primary) hypertension; K21.9 Gastro-esophageal reflux disease without esophagitis; F41.9 Anxiety disorder, unspecified; D72.829 Elevated white blood cell count, unspecified; M60.9 Myositis, unspecified; D64.9 Anemia, unspecified; G56.03 Carpal tunnel syndrome, bilateral upper limbs; K22.2 Esophageal obstruction; Z87.820 Personal history of traumatic brain injury; Z79.899 Other long term (current) drug therapy; Z87.442 Personal history of urinary calculi; Z85.46 Personal history of malignant neoplasm of prostate
CPT/HCPCS: 73110; 73218; 76770; 80048; 80053; 81003; 82962; 83036; 84550; 85025; 85652; 86140; 96374; 96375; 97165; 99285

== ENCOUNTER → 2024-12-26 13:42 | Outpatient (REF) | payer OTHER, SELFPAY ==
[2024-12-26 15:22] LABS: Hematocrit 35.4 % (39.0-52.0); Hemoglobin 12.0 g/dL (13.0-18.0); Mean Corp Hgb Conc. 33.9 g/dL (33.0-37.0); Mean Corpuscular Volume 87.8 fL (80.0-94.0); Nucleated Red Blood Cells % 0 % (-); Platelet Count 250 10^3/uL (130-400); Red Cell Dist. Width 12.8 % (11.5-14.5)
[2024-12-26 15:49] LABS: Blood Urea Nitrogen 23 mg/dl (9-20); Calcium 9.7 mg/dl (8.4-10.2); Carbon Dioxide 26 mmol/L (22-30); Chloride 105 mmol/L (98-107); Glucose 156 mg/dl (70-99); Potassium 4.3 mmol/L (3.5-5.1); Sodium 140 mmol/L (135-145); eGFR > 60.00
== END ==
LOC: RCS 13:42
PROVIDERS: ATTENDING PHYSICIAN Orthopaedic Surgery Hand Surgery
DX: Z01.818 Encounter for other preprocedural examination (principal)
CPT/HCPCS: 36415; 80048; 85025; 93005

== ENCOUNTER → 2025-01-10 08:13 | Outpatient (REF) | payer OTHER, SELFPAY | LOC: HWRCS 08:13 | PROVIDERS: ATTENDING PHYSICIAN Internal Medicine Cardiovascular Disease; FAMILY PHYSICIAN Family Medicine | DX: R94.31 Abnormal electrocardiogram [ECG] [EKG] (principal) | CPT/HCPCS: 93306 ==